=== PATIENT | male | born 2000 | race Caucasian/White ===

== ENCOUNTER 2024-01-30 11:24 | Emergency (ER) | payer OTHER, SELFPAY ==
[2024-01-30] MEDS ORDERED: Dexamethasone 10 MG/ML VIAL ONE ×2 (12:01→12:07)
[2024-01-30] MEDS ORDERED: Ketorolac Tromethamine 30 MG (1 mL) VIAL ONE ×2 (12:01→12:07)
== END 2024-01-30 13:20 | disposition home or self-care (01) ==
LOC: CSHERS 11:24
DX: J06.9 Acute upper respiratory infection, unspecified (principal); F17.290 Nicotine dependence, other tobacco product, uncomplicated
CPT/HCPCS: 87081; 87428; 87430; 96372; 99283; J1100; J1885